=== PATIENT | male | born 1965 ===

== ENCOUNTER 2016-11-29 14:18 | Emergency (ER) | payer MEDICARE ==
[2016-11-29 14:32] VITALS: BMI 26.6
[2016-11-29 14:43] VITALS: BP 143/93; RESP 20; TEMP 98; O2SAT 99
[2016-11-29 14:45] VITALS: PULSE 98
--- NOTE | 2016-11-29 14:58 | ED PDOC ---
Arrival/HPI - General Chief Complaint: Abnormal Skin Integrity Time Seen by Provider: 11/29/16 14:41 Historian: Patient - History of Present Illness Narrative History of Present Illness (Text): 11/29/16 14:44 51 y/o male, no pmh, nkda, c/o rt. shoulder and and arm rash x 1 week. Pt. stated that the rash is painful, burning sensation, on and off, didn't seek medical care until today, no fever or chills, no night sweat, no change in energy level or appetite, no other medical or psychological complaints. Past Medical History - Provider Review Nursing Documentation Reviewed: Yes - Psychiatric Hx Substance Use: No - Surgical History Hx Appendectomy: Yes Family/Social History - Physician Review Nursing Documentation Reviewed: Yes Family/Social History: Unknown Family HX Smoking Status: Heavy Smoker > 10 Cigarettes Daily Hx Alcohol Use: Yes Frequency of alcohol use: Socially Hx Substance Use: No Allergies/Home Meds Allergies/Adverse Reactions: Allergies No Known Allergies Allergy (Verified 11/29/16 15:05) Review of Systems - Review of Systems Constitutional: absent: Fatigue, Fevers Eyes: absent: Vision Changes ENT: absent: Hearing Changes Respiratory: absent: SOB, Cough, Sputum Cardiovascular: absent: Chest Pain Gastrointestinal: absent: Abdominal Pain, Nausea, Vomiting Musculoskeletal: absent: Arthralgias, Back Pain Skin: Rash, Pruritis, Skin Lesions. absent: Laceration, Abscess, Ulcer, Cellulitis Neurological: absent: Headache, Dizziness, Focal Weakness, Gait Changes, Speech Changes, Facial Droop, Disequilibrium, Seizure Physical Exam Vital Signs Reviewed: Yes Vital Signs Temp Pulse Resp BP Pulse Ox 11/29/16 14:41 98.0 F 98 H 20 143/93 H 99 Temperature: Afebrile Blood Pressure: Normal Pulse: Regular Respiratory Rate: Normal Appearance: Positive for: Well-Appearing, Non-Toxic, Comfortable Pain Distress: Moderate Mental Status: Positive for: Alert and Oriented X 3 - Systems Exam Head: Present: Atraumatic, Normocephalic Pupils: Present: PERRL Extroacular Muscles: Present: EOMI Conjunctiva: Present: Normal Mouth: Present: Moist Mucous Membranes Neck: Present: Normal Range of Motion, Trachea Midline. No: Lymphadenopathy Respiratory/Chest: Present: Clear to Auscultation, Good Air Exchange. No: Respiratory Distress, Accessory Muscle Use Cardiovascular: Present: Regular Rate and Rhythm, Normal S1, S2. No: Murmurs Abdomen: Present: Normal Bowel Sounds. No: Tenderness, Distention, Peritoneal Signs Back: Present: Normal Inspection Upper Extremity: Present: Normal Inspection. No: Cyanosis, Edema Lower Extremity: Present: Normal Inspection. No: Edema Neurological: Present: GCS=15, Speech Normal, Motor Func Grossly Intact, Gait Normal, Memory Normal Skin: Present: Warm, Dry, Rashes (visible vesicular with erythematous shingle rash on the rt. posterior shoulder and rt. upper arm unilaterally following the C4 dermatomes, no cellulitis or streaking, no ulcers. ), Normal Color Psychiatric: Present: Alert, Oriented x 3, Normal Insight, Normal Concentration Medical Decision Making ED Course and Treatment: 11/29/16 15:09 -toradol IM, valtrex, prednisone, 11/29/16 15:35 -Case discussed with DR. Pierce and he agreed on the dispo. -Discharge home with valtrex, prednisone, motrin, stay hydrated, contact precaution, follow up with your own pmd and ergonomics consultant within 2 days, return to the ER for any new or worsening signs or symptoms. - Lab Interpretations Lab Results: Lab Results 11/29/16 14:40: POC Glucose (mg/dL) 167 H - Medication Orders Current Medication Orders: Discontinued Medications Ketorolac Tromethamine (Toradol) 60 mg IM STAT STA Stop: 11/29/16 15:06 Last Admin: 11/29/16 15:24 Dose: 60 MG IM Administration Charges Document 11/29/16 15:24 BBII (Rec: 11/29/16 15:24 BIBI [id number]) Injection Site MAR Injection Site Left Deltoid Charges for Administration # of IM Administrations 1 Prednisone (Prednisone Tab) 60 mg PO STAT ONE Stop: 11/29/16 15:06 Last Admin: 11/29/16 15:23 Dose: 60 MG Valacyclovir HCl (Valtrex) 1 gm PO STAT STA PRN Reason: Protocol Stop: 11/29/16 15:06 Last Admin: 11/29/16 15:24 Dose: 1 GM - PA / PERSONNEL CLERK / Resident Statement /DO has reviewed & agrees with the documentation as recorded. Disposition/Present on Arrival - Present on Arrival Any Indicators Present on Arrival: No History of DVT/PE: No History of Uncontrolled Diabetes: No Urinary Catheter: No History of Decub. Ulcer: No History Surgical Site Infection Following: None - Disposition Have Diagnosis and Disposition been Completed?: Yes Diagnosis: Shingles Disposition: HOME/ ROUTINE Disposition Time: 15:10 Patient Plan: Discharge Condition: GOOD Discharge Instructions (ExitCare): Shingles (ED) Additional Instructions: Discharge home with valtrex, prednisone, motrin, stay hydrated, contact precaution, follow up with your own pmd and ergonomics consultant within 2 days, return to the ER for any new or worsening signs or symptoms. Prescriptions: Ibuprofen [Motrin Tab] 600 mg PO QID PRN #28 tab PRN Reason: Other valACYclovir [Valtrex] 1 gm PO TID #21 tab predniSONE [Prednisone] 2 tab PO DAILY #8 tab Referrals: Judith Uriarte MD [Staff Provider] - [place] up with [place] [facility] [place] [facility] [place] - Follow up with primary Forms: WORK NOTE
== END 2016-11-29 16:09 | disposition home or self-care (01) ==
LOC: ED 14:18 → MERGE 14:18 → ED 16:09
DX: B02.9 Zoster without complications (principal); F17.210 Nicotine dependence, cigarettes, uncomplicated
CPT/HCPCS: 82948; 96372; 99281; J1885